=== PATIENT | male | born 1940 | race Caucasian/White ===

== ENCOUNTER → 2020-01-21 | Outpatient (CLI) | payer MEDICARE | END | disposition home or self-care (01) | LOC: SHCH 09:00 | PROVIDERS: ATTEND Internal Medicine Cardiovascular Disease | DX: R07.9 Chest pain, unspecified (principal); I10 Essential (primary) hypertension | CPT/HCPCS: 93306 ==

== ENCOUNTER → 2020-01-28 | Outpatient (CLI) | payer MEDICARE, OTHER ==
[~2020-01-28] MED LIST: REGADENOSON 0.4 MG/5 ML PF SYG IVP SCH
== END | disposition home or self-care (01) ==
LOC: SHCH 07:47
PROVIDERS: ATTEND Internal Medicine Cardiovascular Disease
DX: I10 Essential (primary) hypertension (principal); R07.9 Chest pain, unspecified; R06.00 Dyspnea, unspecified
CPT/HCPCS: 78452; 93017; 96374; A9500 ×2; J2785

== ENCOUNTER → 2020-02-24 | Outpatient (CLI) | payer OTHER | END | disposition home or self-care (01) | LOC: RAH 10:14 | PROVIDERS: ATTEND Internal Medicine Cardiovascular Disease | DX: Z13.6 Encounter for screening for cardiovascular disorders (principal) | CPT/HCPCS: 75571 ==

== ENCOUNTER → 2020-08-17 | Outpatient (CLI) | payer MEDICARE | END | disposition home or self-care (01) | LOC: RAH 10:14 | PROVIDERS: ATTEND Internal Medicine Medical Oncology | DX: C01 Malignant neoplasm of base of tongue (principal); C10.0 Malignant neoplasm of vallecula; R13.19 Other dysphagia | CPT/HCPCS: 74230; 92611 ==

== ENCOUNTER 2024-02-10 12:59 | Emergency (ER) | payer OTHER ==
[~2024-02-10] VITALS: Ht 177.8 cm; Wt 81.6 kg
[~2024-02-10 12:59] MED LIST changes: +ACET-2079 PO; +ASPI-891 PO; +CYCL-309 PO; +DOCU-116 PO; +EMPA25TA PO; +INSLAN SQ; +MIDO5TAB4 PO; +MVI PO; +PINDOLOL PO; +PIOG30TA70 PO; -REGADENOSON 0.4 MG/5 ML PF SYG IVP SCH; +ROSU40TA70 PO
[2024-02-10 13:20] LABS: BASOPHILS # (AUTO) 0.03 K/uL (0.00-0.20); BASOPHILS % (AUTO) 0.5 % (0.0-5.0); EOSINOPHILS % (AUTO) 1.7 % (0.0-8.0); HEMATOCRIT 42.1 % (42-54); IMMATURE GRANULOCYTE ABSOLUTE 0.02 K/uL (0-1); LYMPHOCYTES # (AUTO) 1.1 K/uL (1.0-4.8); LYMPHOCYTES % (AUTO) 19.5 % (21.0-51.0); MEAN CORPUSCULAR HEMOGLOBIN 31.5 pg (27.0-33.0); MEAN CORPUSCULAR HGB CONC 32.1 g/dL (32.0-36.0); MEAN CORPUSCULAR VOLUME 98.1 fL (79-99); MONOCYTES # (AUTO) 0.7 K/uL (0.1-1.0); MONOCYTES % (AUTO) 11.3 % (3.0-13.0); NEUTROPHILS # (AUTO) 3.8 K/uL (1.8-7.7); NEUTROPHILS % (AUTO) 66.7 % (40.0-77.0); PLATELET COUNT (AUTO) 223 K/uL (130-400); RED BLOOD CELL COUNT(AUTO) 4.29 MIL/uL (4.50-6.20); RED CELL DISTRIBUTION WIDTH 17.4 % (11.0-15.5); WHITE BLOOD COUNT (AUTO) 5.7 K/uL (4.8-10.8)
[2024-02-10 13:29] LABS: CREATININE 1.8 mg/dL (0.5-1.3); MAGNESIUM 2.1 mg/dL (1.80-2.40); POTASSIUM 4.8 mmol/L (3.5-5.1)
[2024-02-10 13:32] LABS: INR <= 0.93 (0.85-1.15); PROTHROMBIN TIME 10.3 SEC (9.6-11.6)
[2024-02-10 13:43] LABS: B-TYPE NATRIURETIC PEPTIDE 77 pg/mL (0-100)
[2024-02-10] MEDS: 0.9%NACL 1000ML 1,000 ML IV ONE (14:40)
[2024-02-10 15:34] LABS: APPEARANCE,URINE CLEAR (CLEAR); BILIRUBIN,URINE NEGATIVE (NEGATIVE); COLOR,URINE COLORLESS (YELLOW); GLUCOSE, URINE (UA) >=1000 mg/dL (NEGATIVE); KETONES,URINE NEGATIVE (NEGATIVE); LEUKOCYTE ESTERASE ,URINE NEGATIVE Leu/uL (NEGATIVE); NITRATE,URINE NEGATIVE (NEGATIVE); OCCULT BLOOD,URINE NEGATIVE (NEGATIVE); PH,URINE 5.5 (5.0-8.0); PROTEIN,URINE NEGATIVE (NEGATIVE); UROBILINOGEN,URINE 0.2 mg/dL (0.2-1.0)
[2024-02-10 15:35] LABS: ADD UA MICROSCOPIC YES
[2024-02-10 15:36] LABS: MUCUS,URINE RARE LPF (None Seen); WBC,URINE 0-1 /HPF (0-1)
[2024-02-10] MEDS ORDERED: LEVO75CA5 PO (15:44)
[2024-02-10] MEDS ORDERED: CYAN250010 PO (15:44)
[2024-02-10] MEDS: NICARDIPINE 25MG INJ 100 MG in 0.9%NACL 100ML 60 ML IV SCH (16:09)
[2024-02-10 17:15] VITALS: BP 162/85; PULSE 95; RESP 17; O2SAT 98
== END 2024-02-10 17:25 | disposition short-term general hospital (02) ==
LOC: EDH 12:59
DX: S06.5XAA Traumatic subdural hemorrhage with loss of consciousness status unknown, initial encounter (principal); Z79.82 Long term (current) use of aspirin; Z79.890 Hormone replacement therapy; W18.39XA Other fall on same level, initial encounter; Y93.89 Activity, other specified; Y92.89 Other specified places as the place of occurrence of the external cause; Y99.8 Other external cause status
CPT/HCPCS: 99285; 70450; 96365; 71045; 96361; 83735; 84484; 80048; 83880; 85025; 85610; 81001; 36415; 72125; 93005; J7030; J3490

== ENCOUNTER → 2024-07-20 | Outpatient (CLI) | payer OTHER ==
[~2024-07-20] MED LIST changes: +CYAN250010 PO; +LEVO75CA5 PO; -ROSU40TA70 PO; +ROSU40TA88 PO
--- NOTE | 2024-07-22 10:13 | HMCSR ---
APPROVED REPORT EXAM: Two-dimensional and M-mode echocardiogram with Doppler and color Doppler. INDICATION ICD: Cardiac murmur, unspecified R01.1 RISK FACTORS Hyperlipidemia Diabetes 2D Dimensions RVDd4.2 cmLVEF(%)68.7 (>50%)LVED Vol(simp.)123.0 mL IVSd1.3 (0.7-1.1cm)FS(%)38 %LVES Vol(simp.)43.0 mL LVDd4.6 (3.8-5.6cm)LA (2D)4.0 (1.6-4.0cm)LVEF(%, simp.)65 % PWd1.0 (0.7-1.1cm)Ao Root(2D)3.7 (2.0-3.7cm)LA ESV INDEX (BP)34.70 mL/m2 LVDs2.8 (2.5-4.0cm)LVOT diam2.6 (1.8-2.4cm) IVC diam1.4 cm Aortic Valve AoV Vmax2.7 m/Ade Peak GR29.9 mmHgLVOT Vmax0.9 m/s AoV VTI0.6 mAo Mean GR16.6 mmHgLVOT VTI0.20 m EMMA (VMAX)1.7 cm2Al P1/2T479 msAVA (VTI) 1.7 cm2 Mitral Valve MV E Frck911.1 cm/sDECEL Woir526 msMV Mean GR4 mmHg MV A Obge114.0 cm/sP 1/2 T42 msMVA (VTI)4.6 cm2 E/A ratio1.4MVA (PHT)5.3 cm2MR JGI329 cm2 MR Max PG190 mmHgMR Mean PG135 mmHg TDI E/E' Medial7.2E/E' Lateral4.5 Pulmonary Valve PV Vmax1.0 m/sPV VTI0.22 mPV Mean GR3 mmHg PV Peak GR4.2 mmHg Tricuspid Valve TR Vmax2.6 m/sRAP (EST) 3 ozSnICAL11.1 mmHg TR Peak GR27.1 mmHg Left Ventricle Left ventricular cavity size is normal. There is normal LV segmental wall motion. Mild to moderate co ncentric left ventricular hypertrophy. LVEF is 60-65% Left ventricular filling pattern is normal for age. Right Ventricle The right ventricle is normal size. The right ventricular systolic function is normal. Atria The left atrium size is normal. The right atrium size is normal. Aortic Valve Aortic valve is trileaflet. Aortic valve leaflets are thickened and calcified. Trace There is mild va lvular aortic stenosis. Mitral Valve Mitral valve leaflets are mildly calcified. Mitral regurgitation is trace There is no mitral valve st enosis. Tricuspid Valve The tricuspid valve is normal in structure and function. There is mild tricuspid regurgitation. Right ventricular systolic pressure is estimated at 30-40 mmHg. Possible redundant chordea. Pulmonic Valve Pulmonic valve is not well visualized. There is trace pulmonic valvular regurgitation. Great Vessels The aortic root is normal in size. The ascending aorta is normal in size. The IVC is normal in size a nd collapses >50% with inspiration. Pericardium No pericardial effusion. Other Information Quality : Average Conclusion Left ventricular cavity size is normal. LVEF is 60-65 with normal LV segmental wall motion. Mild to moderate concentric left ventricular hypertrophy. Left ventricular filling pattern is normal for age. The right ventricular systolic function is normal. Both atria are normal in size. No hemodynamically significant valvular abnormalities. No pericardial effusion.
== END | disposition home or self-care (01) ==
LOC: SHCH 13:15
PROVIDERS: ATTEND Student in an Organized Health Care Education/Training Program
DX: I08.3 Combined rheumatic disorders of mitral, aortic and tricuspid valves (principal); R01.1 Cardiac murmur, unspecified; E11.9 Type 2 diabetes mellitus without complications; E78.5 Hyperlipidemia, unspecified
CPT/HCPCS: 93306